=== PATIENT | female | born 1985 | race Caucasian/White ===

== ENCOUNTER 2019-12-29 11:10 | Inpatient (IN) | payer BC, SELFPAY ==
[2019-12-29 11:45] VITALS: BMI 29.8
[2019-12-29] MEDS: Lactated Ringers 1,000 ML 50 ML IV (12:00)
[2019-12-29 12:21] LABS: Absolute Lymphocyte Count 1.54 X10^3/uL (0.83-4.51); Absolute Neutrophil Count 7.5 X10^3/uL (2.0-7.7); Basophil# 0.01 X10^3/uL; Basophil% 0.1 % (0-1); Eosinophil# 0.13 X10^3/uL; Eosinophils% 1.3 % (0-5); Hematocrit 34.3 % (37-47); Hemoglobin 10.8 g/dL (12.0-15.0); Lymphocyte # 1.54 X10^3/ul (4.0); Lymphocyte % 15.4 % (19-41); Mean Corp Hgb Conc 31.5 g/dL (32-36); Mean Platelet Vol. 12.5 fl (6.2-12.0); Monocyte# 0.74 X10^3/uL; Monocyte% 7.4 % (0-10); NRBC Flagged by Analyzer 0 % (0-5); Neutrophil # 7.51 X10^3/uL (2.7-7.7); Neutrophil % 75.3 % (47-70); Platelet Count 173 K/mm3 (150-450); RBC Distribution Width CV 13.6 % (11.6-14.6); RBC Distribution Width SD 44.1 fl (35.1-43.9); Red Blood Count 3.73 M/mm3 (4.2-5.4)
--- NOTE | 2019-12-29 12:27 | PCM.HP.OB ---
- Problem List (1) Spontaneous rupture of amniotic membranes Status: Acute (2) Group beta Strep positive Status: Acute (3) 38 weeks gestation of Status: Acute History Date of Admission: 12/29/19 Final COLE: 01/11/20 Gestational age: 38 Weeks and 1 Days History of this : This is a 34 year-old, G [2], P [1001], at 38.1 weeks gestational age that presents for spontaneous rupture of membranes this morning at 0800 for clear fluid. Positive movement. Irregular contractions but not painful. Desires minimal interventions and natural childbirth. complicated by positive group beta strep Number of Fetus(es): 1 NST - FHR Rate Baby A Baseline: 135 Variability:: Moderate Accelerations:: 15 x 15 Decelerations:: None FHR Category:: Category I Uterine Activity:: irritability History Past Pregnancies: Past Pregnancies Delivery Date Name GA/ Weeks Outcome Route Wt Infant Sex Labor Length Anesthesia Delivery Location Provider FOB Labs: O + Rubella immune HB neg HC neg RPR- NR HIV- NR GC/CH- neg GBS positive Expected Infant Delivery Method: Spontaneous Vaginal Review of Systems Constitutional: Denies: Anorexia, Chills Eyes: Denies: Blurred vision Cardiovascular: Denies: Chest Pain, Edema Respiratory: Denies: Cough, Shortness of Breath Gastrointestinal: Denies: Abdominal Pain Genitourinary: Denies: Dysuria Neurological: Denies: Blurred vision, Headaches Physical Exam General: Alert, Oriented x3, Cooperative, No apparent distress Cardiovascular: Regular rate Lungs: Normal air movement Abdomen: Soft, Non Tender, Gravid Neurological: Cranial nerves II-XII grossly intact Estimated gestational size: Appropriate for gestational size Presentation: Cephalic Cervix Dilation (cm): 3 - house principal Station: -3 Effacement (%): 50 Assessment/Plan All Active Problems Spontaneous rupture of amniotic membranes (Acute) Group beta Strep positive (Acute) 38 weeks gestation of (Acute) This is a 34 year-old, G [2], P [1], at 38.1 weeks gestational age with spontaneous rupture of membranes for clear fluid at 0800 today. Category 1 tracing TOCO showing irritability -Admit to labor and deliver - Routine orders - IV fluids per protocol GBS positive - Start PCN 5 million units IV now and continue with PCN 3 million units IV every 4 hours until delivery - Cordless monitoring/ intermit. monitoring - Ambulation and warm water Anticipate
[2019-12-29 13:37] LABS: Probe Check PASS; Specimen Processing Control PASS
--- NOTE | 2019-12-29 16:20 | PCM.PN.BLA ---
Progress Note Patient seen at bedside. Up ambulating in room and using peanut ball. Stated contractions are more intense and she has to stop and breathe through contractions. Still leaking clear fluid. Positive movement. Intermittent monitoring Discussed nipple stimulation to assist with contractions- patient refusing IV Pitocin Remains afebrile Continue plan of care Anticipate
[2019-12-29] MEDS: Oxytocin 30 units/NS 500 ml 30 UNITS/500 ML IV.SOLN 334 UNITS IV (19:14)
--- NOTE | 2019-12-29 19:21 | PCM.OPRPT ---
Problem List (1) Spontaneous rupture of amniotic membranes Status: Acute (2) Group beta Strep positive Status: Acute (3) 38 weeks gestation of Status: Acute Report of Operation Date of Procedure: 12/29/19 Pre-Operative Diagnosis: Term gestation, Spontaneous ROM Post-Operative Diagnosis: Same, live female Vaginal Delivery Maternal Presentation: Spontaneous Rupture of Membranes Amniotic Membrane Rupture Type: Spontaneous at home Rupture of Membrane time: 0800 Amniotic Fluid Description: Clear Final COLE: 01/11/20 Final COLE Source: [place] <20 weeks Gestational age: 38 Weeks and 1 Days Date of Procedure: 12/29/19 Pre-Operative Diagnosis: Term gestation, Spontaneous rupture of membranes Post-Operative Diagnosis: Same, live female Surgery/ Procedure Performed: Spontaneous Vaginal Delivery Type of Anesthesia: None Description of Procedure: Patient up to bathtub and began feeling pressure and urge to push. Back into bed, patient exam was 10/100/0. Labored with patient throughout pushing. Several position changes. Patient pushing well with contractions while on side in bed. Delivery of head and with gentle downward traction, delivery of anterior shoulder followed by rest of body. Infant crying and vigorous. Placed on maternal abdomen. Delayed cord clamp completed and FOB cut cord after 3 minutes. placed skin to skin with patient. Spontaneous delivery of placenta with three vessel cord. Perineum inspected and intact. Vaginal sweep completed. Fundus firm and hemostasis achieved. Infant placed to breast to breastfeed. Mom and baby stable. Dr. Warner notified of delivery. Presentation: MUNIRA Placental Delivery Description: Spontaneous Placenta Disposition: [facility] Cord Vessel Description: 3 Vessels Cord Entanglement: None Estimated Blood Loss: 200 Infant A gender: Female (1 minute): 8 (5 minute): 9 Laceration: None Medications given after delivery: IV Pitocin - Initially declined active management of 3rd stage but after delivery of placenta, requested pitocin IV
[2019-12-29] MEDS: Naproxen 250 MG Tablet 500 MG PO (21:42)
[2019-12-29 23:17] VITALS: BP 124/70; PULSE 98; RESP 16; TEMP 36.8
[2019-12-30] VITALS (7 sets, daily range): BP systolic 111–132; BP diastolic 70–82; PULSE 70–140; RESP 14–30; TEMP 36.4–36.9; O2SAT 98
--- NOTE | 2019-12-30 02:00 | NURSING ---
Report received from Nazia COOL, taking over pt and care at this time.
[2019-12-30] MEDS: Acetaminophen 500 MG Tablet 1000 MG PO ×2 (04:48→14:29)
[2019-12-30] MEDS: Naproxen 250 MG Tablet 500 MG PO ×2 (07:28→20:26)
--- NOTE | 2019-12-30 16:23 | PCM.PN.OB ---
Patient Problems: Active and Suspected Problems Spontaneous rupture of amniotic membranes (Acute) Group beta Strep positive (Acute) 38 weeks gestation of (Acute) Subjective: Doing well per patient and nursing staff. Ambulating and taking PO without difficulty. . Lochia normal. Planning D/C home today. - Physical Exam Vitals/I&O's: Vital Signs Temp Pulse Resp BP Pulse Ox 97.7 F L 70 16 111/70 98 12/30/19 12:00 12/30/19 12:00 12/30/19 12:00 12/30/19 12:00 12/30/19 04:40 Oxygen Delivery Method Room Air Weight: 185 lb Body Mass Index (BMI) 29.8 Intake and Output for Last 24 Hours 12/28/19 12/29/19 12/30/19 23:59 23:59 23:59 Intake Total 1205.00 / 1205.00 Output Total 300 / 300 Balance 905.00 / 905.00 General: Alert, Oriented x3, Cooperative HEENT: Atraumatic Neck: Trachea Midline Lungs: Clear to auscultation, Normal air movement, No rhonchi, No wheeze Cardiovascular: Regular rate, Regular Rhythm, No murmurs Abdomen: Bowel Sounds Present, Soft Extremities: No edema Psych/Mental Status: Normal Affect, Appropriate Current Medications Acetaminophen (Tylenol) 1,000 mg PO Q8H PRN PRN PRN Reason: Pain Score 1-10/10 Last Admin: 12/30/19 14:29 Dose: 1,000 mg Documented by: Bisacodyl (Dulcolax) 10 mg RECTAL UD PRN PRN Reason: If no BM Dibucaine (Dibucaine) 1 applic TOPICAL TID PRN PRN; Protocol PRN Reason: Discomfort Hydrocortisone (Hytone) 1 applic TOPICAL TID PRN PRN; Protocol PRN Reason: Discomfort Methylergonovine Maleate (Methergine) 0.2 mg IM X1 PRN PRN Reason: Excess bleeding/uterine atony Naproxen (Naprosyn) 500 mg PO Q8H PRN PRN PRN Reason: Pain Score 1-10/10 Last Admin: 12/30/19 07:28 Dose: 500 mg Documented by: Ondansetron HCl (Zofran) 4 mg IV Q4H PRN PRN PRN Reason: Nausea Senna/Docusate Sodium (Senokot-S, Shivani-Colace) 1 - 2 tablet PO DAILY PRN PRN PRN Reason: Constipation Simethicone (Mylicon) 80 mg PO PCHS PRN PRN Reason: Indigestion/Stomach pain Sodium Chloride () 5 - 15 ml IV UD PRN PRN Reason: SALINE FLUSH Medical Necessity - Tobacco Use Smoking Status: Never smoker Assessment/Plan All Active Problems Spontaneous rupture of amniotic membranes (Acute) Group beta Strep positive (Acute) 38 weeks gestation of (Acute) A: PPD #1 P: 1) Routine PP and instructions 2) Follow up in 2 weeks and 6 weeks 3) D/C home
--- NOTE | 2019-12-30 16:26 | DCINST_ITS ---
Discharge Diet: No Restrictions Discharge Activity: Return to Normal Activity, May not drive while taking narcotic pain medications., May Shower May resume sexual activity in: 4-6 weeks Weight Bearing Status: Full weight bearing Additional Activity Instructions:: Nothing in the vagina for 4-6 weeks. You may return to work/school in 6 weeks. Call your doctor if your incision/area has: Continuous Slow Oozing, Sudden Increased Bleeding, Increased Pain/ Swelling, Increased Redness, Foul Smelling Discharge Call your doctor if you observe: Fever of 101 or Higher Additional Instructions: If you experience any of the following, contact your healthcare provider. * Bleeding that soaks a pad every hour for 2 hours * Fever 100.4 or higher * Unrelieved incision or abdominal pain * Swelling, redness, discharge or bleeding from your incision or episiotomy site * Your incision begins to separate * Problems urinating (including inability to urinate or burning while ur inating). * Visual changes * Severe headache * Flu-like symptoms * Pain or redness in one of both of your breasts * Pain, warmth, tenderness or swelling in your legs, especially the calf area * Frequent nausea and vomiting * Symptoms of depression or anxiety If you experience any of the following, call 911 or go to the nearest Emergency Room. * Chest pain * Problems breathing * Seizure activity * Partial or complete paralysis of a body part, slurred speech, weakness or drooping of the face, or a sudden inability to walk or hold your balance Allergies/Adverse Reactions: Allergies No Known Allergies Allergy (Verified 12/29/19 12:31) Please Follow Up With: Estephania Pelletier CNM When: Call to make an appointment with your doctor in 6 weeks. If you had elevated Blood Pressure or 4th degree laceration you will need to be seen in 2 weeks. Primary Care Physician: Sherri Cee MD [Primary Care Provider] - Test Results: Test results from this visit will be discussed in further detail at your follow- up appointment, if applicable.
== END 2019-12-30 20:40 | disposition home or self-care (01) | DRG 807 ==
PROVIDERS: Admitting Provider Advanced Practice Midwife; PCP Family Medicine; Visit Provider Advanced Practice Midwife
DX: O99.824 Streptococcus B carrier state complicating childbirth (principal); Z3A.38 38 weeks gestation of pregnancy; Z37.0 Single live birth
CPT/HCPCS: 59025; 59050; 85025; 86850; 86900; 86901; 87635; 99218; G2023; J7120; G0378; U0003

== ENCOUNTER → 2022-12-19 | Outpatient (CLI) | payer OTHER, SELFPAY ==
[2022-12-19 08:12] LABS: Glucose GTT-Gestation. Fasting 83 mg/dL (<105)
[2022-12-19 09:31] LABS: Glucose GTT-Gestational 1 Hr 228 mg/dL (<190)
[2022-12-19 10:52] LABS: Glucose GTT-Gestational 3 Hr 69 L (<145)
[2022-12-19 10:52] LABS: Glucose GTT-Gestational 2 Hr 201 mg/dL (<165)
== END | disposition home or self-care (01) ==
PROVIDERS: PCP Family Medicine; Referring Provider Advanced Practice Midwife; Visit Provider Advanced Practice Midwife
DX: O99.810 Abnormal glucose complicating pregnancy (principal); Z3A.00 Weeks of gestation of pregnancy not specified
CPT/HCPCS: 36415; 82951; 82952

== ENCOUNTER 2023-02-02 10:35 | Inpatient (IN) | payer OTHER, SELFPAY ==
[2023-02-02] VITALS (13 sets, daily range): BP systolic 106–146; BP diastolic 60–82; PULSE 68–149; RESP 15–16; TEMP 36.6–37.7; O2SAT 81–98; BMI 32.3
[2023-02-02] MEDS: Oxytocin 10 UNITS/ML Vial IM (11:30)
--- NOTE | 2023-02-02 11:44 | PCM.HP.OB ---
HPI - General General Date of Admission: 02/02/23 Date of Service: 02/02/23 Chief Complaint: 38 week gestation, labor HPI Narrative HEAVENLY SHARP, is a 37 F at 38w0d who presents to L&D completely dilated. PFSH PFSH Allergy/AdvReac Type Severity Reaction Status Date / Time No Known Allergies Allergy Verified 12/29/19 12:31 Social History Smoking Status: Never smoker History Elective abortions Hx Para 1 Spontaneous abortions Hx # Term Pregnancies Ectopic pregnancies Hx # Pregnancies Multiple births # of living children Vital Signs Vital Signs Vital Signs: 02/02/23 10:52 02/02/23 10:52 02/02/23 10:57 Pulse Rate 92 149 H Blood Pressure BP Systolic BP Diastolic Pulse Ox 98 02/02/23 10:57 02/02/23 11:41 02/02/23 11:41 Pulse Rate 85 Blood Pressure 124/67 H BP Systolic 124 BP Diastolic 67 Pulse Ox 81 Labs Labs Labs: Blood Type O POSITIVE Antibody Screen NEGATIVE Hct 34.3 % (37-47) L Hgb 10.8 g/dL (12.0-15.0) L Rhogam given: No Assessment & Plan (1) 38 weeks gestation of : PLAN: Pt presented to labor and delivery at complete dilation and +1 station pushing. Discussed importance of IV access including risk, benefits, alternatives and patient declined an IV. She understands by declining an IV this is against medical advice. GBS positive and untreated given patient declines an IV and precipitous delivery. See delivery report for details. (2) Group beta Strep positive: (3) Spontaneous rupture of amniotic membranes: (4) Precipitous delivery: (5) AMA (advanced maternal age) multigravida 35+: (6) Late care: (7) GDM, class A1:
--- NOTE | 2023-02-02 11:49 | OP.PCM_ITS ---
Problems Associated Problem List Diagnoses (1) GDM, class A1: (2) Late care: (3) AMA (advanced maternal age) multigravida 35+: (4) Precipitous delivery: (5) Spontaneous rupture of amniotic membranes: (6) Group beta Strep positive: (7) 38 weeks gestation of : Report of Operation Date of Procedure: 02/02/23 Pre-Operative Diagnosis: 38 week gestation, AMA, A1GDM, precipitous delivery, GBS positive status Post-Operative Diagnosis: As above Surgery/Procedure Performed:: Description of Surgical Findings:: Viable female infant with Apgars of 8 and 9 delivered in left occiput anterior position. Loose nuchal cord x1 noted. No lacerations noted. Surgeon: Ny Duque Type of Anesthesia: None Special Medications: None Specimen's removed: Placenta Drains: None Estimated Blood Loss (mL): 200 Fluids Replaced: N/A Description of Procedure: The patient presented to labor and delivery completely dilated and +1 station pushing. She was prepped and draped and with pushing, the head of the was delivered in left occiput anterior position. A nuchal cord x1 was noted and unable to be easily reduced. The anterior shoulder was delivered with gentle downward traction, followed by the posterior shoulder and body of the without any excessive force or delay. A vigorous viable female infant was placed on maternal abdomen. The cord was clamped and cut after a 60 sec delay by the father the baby. Cord blood was sent. The placenta delivered spontaneously and was noted to be normal-appearing and intact with a three- vessel cord. No lacerations were noted. A vaginal sweep was performed. Fundus was firm and bleeding hemostatic. Sponge counts were correct. Grafts/Implants Used: None Complications None Admit VTE Documentation VTE Present on Admission: No
[2023-02-02] MEDS: Ibuprofen 600 MG Tablet PO ×2 (12:19→19:40)
[2023-02-02 12:54] LABS: Bedside Glucose 126 mg/dL (74-106)
[2023-02-02 13:10] LABS: Absolute Lymphocyte Count 0.75 X10^3/uL (0.83-4.51); Absolute Neutrophil Count 16.6 X10^3/uL (2.0-7.7); Basophil# 0.04 X10^3/uL; Basophil% 0.2 % (0-1); Eosinophil# 0.02 X10^3/uL; Eosinophils% 0.1 % (0-5); Hematocrit 40.2 % (37-47); Hemoglobin 13.1 g/dL (12.0-15.0); Lymphocyte # 0.75 X10^3/ul (0.83-4.51); Lymphocyte % 4.2 % (19-41); Mean Corp Hgb Conc 32.6 g/dL (32-36); Mean Corpuscular Hgb 31.6 pg (27.0-32.0); Mean Corpuscular Volume 97.1 fL (81-99); Mean Platelet Vol. 11.6 fl (6.2-12.0); Monocyte% 2.2 % (0-10); NRBC Flagged by Analyzer 0 % (0-5); Neutrophil # 16.55 X10^3/uL (2.7-7.7); Neutrophil % 92.6 % (47-70); Platelet Count 157 K/mm3 (150-450); RBC Distribution Width CV 13.8 % (11.6-14.6); RBC Distribution Width SD 49.4 fl (35.1-43.9); Red Blood Count 4.14 M/mm3 (4.2-5.4); White Blood Count 17.9 K/mm3 (4.4-11.0)
[2023-02-02 13:59] LABS: Syphilis Antibodies Non-reactive
[2023-02-02] MEDS: Acetaminophen 500 MG Tablet 1000 MG PO ×2 (14:33→23:06)
[2023-02-03] MEDS: Ibuprofen 600 MG Tablet PO ×3 (03:22→19:43)
[2023-02-03 05:00] VITALS: BP 107/69; PULSE 83; RESP 17; TEMP 36.6; O2SAT 97
[2023-02-03 07:34] LABS: Bedside Glucose 76 mg/dL (74-106)
[2023-02-03 08:00] VITALS: BP 115/72; PULSE 64; RESP 16; TEMP 36.1; O2SAT 96
[2023-02-03] MEDS: Acetaminophen 500 MG Tablet 1000 MG PO ×2 (08:24→16:09)
--- NOTE | 2023-02-03 08:32 | PN.OBGYN_ITS ---
Subjective Subjective Patient seen at bedside. Feeling good. without difficulty. Ambulating and voiding. Lochia decreased. Objective Data Objective Data Vital Signs: Vital Signs Temp Pulse Resp BP Pulse Ox O2 Del Method 97 F L 64 16 115/72 96 Room Air 02/03/23 08:00 02/03/23 08:00 02/03/23 08:00 02/03/23 08:00 02/03/23 08:00 02/03/23 08:00 Oxygen Delivery Method Room Air Weight: 200 lb Body Mass Index (BMI) 32.3 Intake & Output: Intake and Output for Last 24 Hours 02/01/23 02/02/23 02/03/23 23:59 23:59 23:59 Output Total 1350 / 1350 Balance -1350 / -1350 Lab / Micro Data 02/02/23 12:45 Labs: Laboratory Results - last 24 hr 02/02/23 12:04: POC Glucose 126 H 02/02/23 12:45: WBC 17.9 H, RBC 4.14 L, Hgb 13.1, Hct 40.2, MCV 97.1, MCH 31.6, MCHC 32.6, RDW Std Deviation 49.4 H, RDW Coeff of Nahomy 13.8, Plt Count 157, MPV 11.6, Immature Gran % (Auto) 0.700, Neut % (Auto) 92.6 H, Lymph % (Auto) 4.2 L, [place] % (Auto) 2.2, Eos % (Auto) 0.1, Baso % (Auto) 0.2, Absolute Neuts (auto) 16.6 H, Absolute Lymphs (auto) 0.75 L, Nucleated RBC % 0, Syphilis Total Ab Non- reactive, Blood Type O POSITIVE, Antibody Screen NEGATIVE 02/03/23 07:16: POC Glucose 76 ROS Eyes Eyes: Denies blurry vision, change in vision or spots in vision ENT HEENT: Denies dizziness or headache(s) Cardiovascular Cardiovascular: Denies abdominal pain, chest pain or dyspnea Respiratory/Chest Respiratory/Chest: Denies cough, dyspnea, shortness of breath at rest or shortness of breath with exertion Gastrointestinal Gastrointestinal: Denies abdominal pain, diarrhea or vomiting Genitourinary Genitourinary: Denies change in urinary stream, difficulty urinating or dysuria Musculoskeletal Musculoskeletal: Reports none Integumentary Integumentary: Denies rash Neurologic Neurologic: Denies dizziness, headache(s), memory loss or weakness Physical Exam Const alert and no apparent distress General Appearance: cooperative and comfortable Exam Limitations: no limitations HEENT normocephalic Eyes General Eye: normal appearance of both eyes Neck full ROM General: normal visual inspection Chest Chest: symmetrical chest wall rise Resp normal respiratory effort and normal air movement Effort and Inspection: symmetric chest movement Auscultation: clear to auscultation bilaterally Cardio regular rate and regular rhythm GI normal to inspection, nondistended, normoactive bowel sounds Back/Spine normal ROM Extremity full ROM and no calf tenderness General Extremity: normal exam except as noted Skin no rashes or lesions noted Neuro CN's II-XII intact bilaterally Psych mental status grossly normal Assessment & Plan (1) Precipitous delivery: (2) Care and examination of lactating mother: PLAN: Plan PPD 1 support Routine care GBS positive- untreated due to precipitous labor- Infant unable to be d/c home until 36 hours D/C home tomorrow AM
[2023-02-03 11:31] VITALS: BP 116/73; PULSE 93; RESP 16; TEMP 36.5; O2SAT 96
[2023-02-03 18:55] VITALS: BP 111/70; PULSE 80; RESP 16; TEMP 36.3; O2SAT 98
[2023-02-03 19:44] VITALS: BP 109/76; PULSE 82; RESP 16; TEMP 36.6; O2SAT 97
--- NOTE | 2023-02-03 21:09 | DCINST_ITS ---
Discharge Instructions Diet Discharge Diet: No restrictions Activity May resume sexual activity in: 6-8 weeks Weight Bearing Status: Weight bearing as tolerated Dressing / Incision Call your doctor if you observe: Fever of 101 or Higher, Inability to urinate, Using more than 1 pad per hour, Shortness of breath, Chest pain, Calf discomfort and Uncontrolled pain Follow Up Care Please Follow Up With: Lisa Davis CNM When: 2 weeks virtual visit/ 6 weeks in office Test Results: Test results from this visit will be discussed in further detail at your follow- up appointment, if applicable. Discharge Plan Admission Admit Date/Time: 02/02/23 10:35 Primary Reason for Your Visit: Labor and Delivery Attending Provider: Ny Duque Primary Care Provider: Sherri Cee Instructions Patient Instructions: After a Vaginal Discharge Orders/Prescriptions Prescriptions: No Action Vitamin 27 mg iron- 800 mcg tablet 1 tab PO DAILY Referrals / Follow Up: Sherri Cee MD [Primary Care Provider] - Disposition Disposition (needs filled in before D/C Order can be placed): Home, Self Care
== END 2023-02-03 21:20 | disposition home or self-care (01) | DRG 807 ==
PROVIDERS: Admitting Provider Obstetrics & Gynecology; PCP Family Medicine; Visit Provider Obstetrics & Gynecology
DX: O24.420 Gestational diabetes mellitus in childbirth, diet controlled (principal); Z37.0 Single live birth; O42.92 Full-term premature rupture of membranes, unspecified as to length of time between rupture and onset of labor; O62.3 Precipitate labor; O69.81X0 Labor and delivery complicated by cord around neck, without compression, not applicable or unspecified; Z3A.38 38 weeks gestation of pregnancy; Z53.20 Procedure and treatment not carried out because of patient's decision for unspecified reasons
CPT/HCPCS: 59025; 59050; 82962; 85025; 86780; 86850; 86900; 86901; 99221; G0378